=== PATIENT | male | born 1940 | race Asian ===

== ENCOUNTER → 2017-04-21 | Outpatient (CLI) | payer MEDICARE, OTHER ==
[2014-08-14 18:19] VITALS: BMI 27.1
[~2017-04-21] MED LIST: ALF10 PO; AMLO-96 PO; ASPI-1471 PO; ATOR20TA65 PO; ATR10 PO; AZIT500T47 PO; CHOL200051 PO; CHOL500025 PO; CIP500 PO; KET10 PO; LEV25 PO; LEV500P IV; LISI-362 PO; LISI20TA29 PO; LOR5 PO; METF-410 PO; METF500T4 PO; METO-253 PO; OMEG300C PO; TEST2.5G6; WARF2TAB73 PO
[2017-04-21 12:19] LABS: PLATELET COUNT, AUTOMATED 241 K/uL (150-450)
[2017-04-21 12:56] LABS: LDL CHOLESTEROL 63 mg/dl
== END ==
LOC: LAB 11:36
PROVIDERS: ATTEND Internal Medicine
DX: E11.9 Type 2 diabetes mellitus without complications (principal); I10 Essential (primary) hypertension; G47.33 Obstructive sleep apnea (adult) (pediatric); E78.2 Mixed hyperlipidemia; E03.9 Hypothyroidism, unspecified
CPT/HCPCS: 36415; 82040; 82247; 82310; 82374; 82435; 82465; 82565; 82947; 83036; 83718; 84075; 84132; 84155; 84295; 84443; 84450; 84460; 84478; 84520; 85025

== ENCOUNTER → 2017-10-08 | Outpatient (CLI) | payer MEDICARE, OTHER ==
[2014-08-14 18:19] VITALS: BMI 27.1
[~2017-10-08] MED LIST changes: +HYDR12.556 PO; -METF-410 PO; +METF-411 PO
== END ==
LOC: LAB 10:59
PROVIDERS: ATTEND Internal Medicine Cardiovascular Disease
DX: E78.00 Pure hypercholesterolemia, unspecified (principal); Z95.2 Presence of prosthetic heart valve
CPT/HCPCS: 36415; 82310; 82374; 82435; 82465; 82565; 82947; 83718; 84132; 84295; 84478; 84520

== ENCOUNTER → 2018-04-16 | Outpatient (CLI) | payer MEDICARE, OTHER ==
[2014-08-14 18:19] VITALS: BMI 27.1
[~2018-04-16] MED LIST changes: +AMLO-125 PO; -AMLO-96 PO; -METF-411 PO; +METF-450 PO
[2018-04-16 13:31] LABS: PLATELET COUNT, AUTOMATED 248 K/uL (150-450)
== END ==
LOC: LAB 12:47
PROVIDERS: ATTEND Internal Medicine
DX: Z00.00 Encounter for general adult medical examination without abnormal findings (principal); E11.9 Type 2 diabetes mellitus without complications; I10 Essential (primary) hypertension; E03.9 Hypothyroidism, unspecified; I50.9 Heart failure, unspecified; Z12.5 Encounter for screening for malignant neoplasm of prostate
CPT/HCPCS: 36415; 81001; 83036; 84443; 85025; G0103; 82040; 82247; 82310; 82374; 82435; 82465; 82565; 82947; 83718; 84075; 84132; 84153; 84155; 84295; 84450; 84460; 84478; 84520

== ENCOUNTER → 2018-05-26 | Outpatient (CLI) | payer MEDICARE, OTHER ==
[2014-08-14 18:19] VITALS: BMI 27.1
--- NOTE | 2018-05-26 15:57 | EKG ---
FACILITY: [facility] PATIENT NAME: ANABEL ZAMUDIO : [id number] MR: [id number] V: [id number] EXAM DATE: ORDERING PHYSICIAN: ENMANUEL KC TECHNOLOGIST: Test Reason : Blood Pressure : / mmHG Vent. Rate : 073 BPM Atrial Rate : 073 BPM P-R Int : 154 ms QRS Dur : 100 ms QT Int : 444 ms P-R-T Axes : 002 012 093 degrees QTc Int : 489 ms Normal sinus rhythm Nonspecific ST and T wave abnormality Prolonged QT Abnormal ECG When compared with ECG of 06-AUG-2015 15:37, Non-specific change in ST segment in Inferior leads Non-specific change in ST segment in Anterolateral leads T wave inversion no longer evident in Inferior leads T wave inversion now evident in Lateral leads QT has lengthened Referred By: Confirmed By:
== END ==
LOC: RESP 13:23
PROVIDERS: ATTEND Surgery
DX: R94.31 Abnormal electrocardiogram [ECG] [EKG] (principal)
CPT/HCPCS: 93005

== ENCOUNTER 2018-06-23 01:10 | Day surgery (SDC) | payer MEDICARE, OTHER ==
[2014-08-14 18:19] VITALS: Ht 172.7 cm; Wt 74.4 kg
[~2018-06-23] VITALS: Ht 172.7 cm; Wt 74.4 kg
[2018-06-23 06:13] VITALS: BP 130/87
[2018-06-23] MEDS ORDERED: LIDOCAINE/SOD BICARB 8.4% SYR ID ONE (06:30)
[2018-06-23] MEDS ORDERED: NORMOSOL R SOLN(*) 1000 ML BAG 1,000 ML IV PRN (06:30)
[2018-06-23] MEDS ORDERED: PROPOFOL EMUL(*) 10MG/ML 20 ML 40 ML ONE ×2 (07:10→07:17)
[2018-06-23] MEDS ORDERED: LIDOCAINE MPF 1% 5 ML VIAL ONE ×2 (07:10→07:17)
[2018-06-23] MEDS ORDERED: PROPOFOL EMUL(*) 10MG/ML 20 ML 20 ML ONE ×2 (08:09→08:39)
[2018-06-23 08:44] VITALS: BP 86/56
--- NOTE | 2018-06-23 08:58 | Short(Outpt) Discharge Summary ---
Discharge Summary Reason for Hosp/Final Diag: (1) History of colon polyps Status: Chronic Hospital Course & Plan: Colonoscopy with polypectomy x15 completed without problems. Will recommend colonoscopy in 1 year. Departure Discharge to: Home, Self Care Discharge Instructions Home Meds Active Scripts Hydrochlorothiazide (HYDROCHLOROTHIAZIDE) 12.5 Mg Capsule, 1 TAB PO QDAY, #90 CAPSULE 4 Refills Prov:PENNIE LONGORIA MD 04/27/18 Lisinopril (LISINOPRIL) 20 Mg Tablet, 20 MG PO BID, #180 TAB 4 Refills Prov:PENNIE LONGORIA MD 04/27/18 Metformin Hcl (METFORMIN HCL ER) 500 Mg Tab.er.24, 3 TAB PO QDAY, #270 TAB 4 Refills Prov:PENNIE LONGORIA MD 04/27/18 Atorvastatin Calcium (ATORVASTATIN CALCIUM) 20 Mg Tablet, 1 TAB PO QDAY, #90 TAB 4 Refills TAKE ONE TABLET BY MOUTH ONCE A DAY AT BED TIME Prov:PENNIE LONGORIA MD 04/27/18 Metoprolol Tartrate (METOPROLOL TARTRATE) 50 Mg Tab, 1 TAB PO BID, #180 TAB 4 R efills Prov:PENNIE LONGORIA MD 04/27/18 Reported Medications Cholecalciferol (Vitamin D3) (D-2000) 2,000 Unit Capsule, 2000 UNIT PO QDAY, CAPSULE 11/11/16 Aspirin (ASPIR 81) 81 Mg Tablet., 2 TAB PO QDAY, TAB 10/20/13 Diet: Regular Activity: As Tolerated Special Instructions: Your colonoscopy was completed without problems and your prep was excellent (Good Job!!). I removed 15 polyps from your colon and they were sent to pathology. One of them, in particular, was a large polyp that I had to remove in pieces and so I would like to look again in 1 year for more polyps and to make sure the large polyp isn't growing back. My office will call you in the next week or two to let you know what the polyps are but we'll recommend that your next colonoscopy be in 1 year. ENMANUEL KC MD June 23, 2018 08:58
[2018-06-23 09:01] VITALS: BP 107/78
[2018-06-23 09:30] VITALS: BP 124/81
[2018-06-23 09:40] VITALS: BP 114/84
[2018-06-23 09:42] VITALS: BP 125/85
== END 2018-06-23 10:05 | disposition home or self-care (01) ==
LOC: OR 01:10
PROVIDERS: ATTEND Surgery
DX: Z12.11 Encounter for screening for malignant neoplasm of colon (principal); D12.2 Benign neoplasm of ascending colon; D12.4 Benign neoplasm of descending colon; E11.9 Type 2 diabetes mellitus without complications
CPT/HCPCS: 00811; 36416; 45385; 82948; J2001; J2704; 88305

== ENCOUNTER → 2018-07-02 | Outpatient (CLI) | payer MEDICARE, OTHER ==
[2014-08-14 18:19] VITALS: BMI 27.1
[2018-07-02 12:31] LABS: PLATELET COUNT, AUTOMATED 282 K/uL (150-450)
--- NOTE | 2018-07-02 13:27 | RADIOLOGY IMAGING REPORT ---
FACILITY: [facility] [place]IENT NAME: Dalila Alva : 1940 MR: [id number] V: [id number] EXAM DATE: ORDERING PHYSICIAN: PENNIE LONGORIA TECHNOLOGIST: Location: [facility] [place] Patient: Dalila Alva : 1940 Visit/Account:[id number] Date of Sevice: 07/02/2018 Chest 2 views: HISTORY: Hypoxemia, dyspnea COMPARISON: 08/06/2015, chest CT 08/31/2015 FINDINGS: Frontal and lateral chest: Heart size is upper limits of normal. Aorta is ectatic and ther e are atherosclerotic changes. There is prominence of the interstitial markings throughout the lungs , very subtle areas of scattered groundglass opacity. There is scarring and pleural thickening in th e right upper hemithorax laterally. There is no focal consolidation or pleural effusion. No pneumot horax. Pulmonary vasculature is normal. Changes of median sternotomy and valve replacement noted IMPRESSION: Prominent interstitial markings with scattered areas of groundglass opacity, these findin gs are more pronounced than on the prior chest x-ray and chest CT. Findings may be indicative of an acute infectious or inflammatory process superimposed on chronic interstitial lung disease. Pattern is not what would be expected for congestive heart failure. Report Dictated By: Ya Jacobs MD at 07/02/2018 1:04 PM Report E-Signed By: Ya Jacobs MD at 07/02/2018 1:22 PM WSN:[email or web address]
== END ==
LOC: LAB 11:14
PROVIDERS: ATTEND Internal Medicine
DX: R06.09 Other forms of dyspnea (principal); R09.02 Hypoxemia; Z95.3 Presence of xenogenic heart valve; I10 Essential (primary) hypertension; E78.2 Mixed hyperlipidemia
CPT/HCPCS: 36415; 71046; 82040; 82247; 82310; 82374; 82435; 82565; 82947; 83036; 83880; 84075; 84132; 84155; 84295; 84443; 84450; 84460; 84520; 85025; 93306

== ENCOUNTER → 2018-07-07 | Outpatient (CLI) | payer MEDICARE, OTHER ==
[2014-08-14 18:19] VITALS: BMI 27.1
--- NOTE | 2018-07-07 17:22 | RADIOLOGY IMAGING REPORT ---
FACILITY: [facility] [place] PATIENT NAME: Dalila Alva : 1940 MR: [id number] V: [id number] EXAM DATE: [id number] ORDERING PHYSICIAN: PENNIE LONGORIA TECHNOLOGIST: Location: [facility] - [place] Patient: Dalila Alva : 1940 Visit/Account:[id number] Date of Sevice: 07/07/2018 EXAMINATION: CT Chest Without Contrast 07/07/2018 7:57 AM HISTORY: Interstitial lung disease TECHNIQUE: Spiral scan was obtained through the chest without contrast. One of the following dose optimization techniques was utilized in the performance of this exam: Autom ated exposure control; adjustment of the mA and/or kV according to the patient's size; or use of an i terative reconstruction technique. Specific details can be referenced in the facility's radiology C T exam operational policy. COMPARISON STUDIES: CTA chest 08/31/2015. FINDINGS: Lungs / pleura: There are bullous or emphysematous lucencies in the lungs most notably in the apices. Subpleural reticular fibrosis with mild honeycombing in the lungs with upper and lower lobe involvem ent with a basilar predominance. Overall there has been minimal progression from previous. No superim posed acute groundglass opacity and exacerbation. No focal parenchymal mass. Pleural spaces are clear . Mediastinum / kyaw: negative Heart / pericardium: Indwelling TAVR. Vessels: Sclerosis includes coronary disease. Musculoskeletal / Body wall: No acute finding. Sternotomy is intact. Degenerative changes in the spin e. Lymph node assessment: 1.7 cm right paratracheal lymph node and additional smaller lymph nodes are es sentially stable. Lower neck: negative Upper abdomen: CBD in the pancreatic head is prominent at 1.1 cm. Distal most CBD and ampulla are not visualized by this chest study. Incidental small accessory splenule. Exophytic low density posterior cortical cyst on the right kidney. IMPRESSION: 1. ILD with peripheral fibrosis and mild honeycombing without substantial progression comparing with 08/31/2015. This is a nonspecific pattern as can be seen with UIP with etiologies such as chronic hype rsensitivity pneumonitis. 2. Stable mild mediastinal adenopathy, likely reactive to the pulmonary process. 3. Prominent CBD, little changed from previous. Report Dictated By: Rashi Magallanes MD at 07/07/2018 5:11 PM Report E-Signed By: Rashi Magallanes MD at 07/07/2018 5:18 PM WSN:[id number]
== END ==
LOC: CT 00:37
PROVIDERS: ATTEND Internal Medicine
DX: J84.9 Interstitial pulmonary disease, unspecified (principal)
CPT/HCPCS: 71250

== ENCOUNTER → 2018-07-12 | Outpatient (CLI) | payer MEDICARE, OTHER ==
[2014-08-14 18:19] VITALS: BMI 27.1
--- NOTE | 2018-07-12 16:36 | RADIOLOGY IMAGING REPORT ---
FACILITY: [facility] - [place] PATIENT NAME: Dalila Alva : 1940 MR: [id number] V: [id number] EXAM DATE: ORDERING PHYSICIAN: PENNIE LONGORIA TECHNOLOGIST: Location: [facility] [place] Patient: Dalila Alva : 1940 Visit/Account:[id number] Date of Sevice: 07/12/2018 KIDNEYS EXAMINATION: Renal ultrasound. History: Abnormal renal function COMPARISON STUDIES: CT on pelvis December 06, 2007 FINDINGS: Kidneys: Right kidney- 9.8 x 5.4 x 5.8. Centimeters There is a 2.4 cm cyst in the upper pole. The resistive index on the right is 0.56 Left kidney- 11.4 x 5.5 x 4.1 cm. Resistive index on the left is 0.56 Uniform and symmetric blood flow in each kidney by Doppler ultrasound. Hydronephrosis: none Bladder: Prevoid volume 159 mL. Post void residual 82 mL. Bilateral ureteral jets are present. Pro state gland measures 3.6 x 3.7 x 3.4 cm. There are prominent vessels in the left side of the pelvis Abdominal aorta and IVC: Aorta and IVC are patent by Doppler ultrasound. IMPRESSION: 2.4 cm cyst upper pole of the right kidney 82 mL post void bladder residual. Prominent vessels left-sided the pelvis Mildly prominent prostate Report Dictated By: Ade Montiel MD at 07/12/2018 4:27 PM Report E-Signed By: Ade Montiel MD at 07/12/2018 4:31 PM WSN:[email or web address]
== END ==
LOC: US 00:38
PROVIDERS: ATTEND Internal Medicine
DX: N28.1 Cyst of kidney, acquired (principal); R33.9 Retention of urine, unspecified; N40.1 Benign prostatic hyperplasia with lower urinary tract symptoms
CPT/HCPCS: 76705

== ENCOUNTER → 2018-07-15 | Outpatient (CLI) | payer MEDICARE, OTHER ==
[2014-08-14 18:19] VITALS: BMI 27.1
--- NOTE | 2018-07-15 15:57 | NUR ---
Unable to perform PFT Patient was unable to produce acceptable and reproducible plethsmography, spirometry, and DLCO. After multiple trials of each test patient was unable to follow or listen to directions. I was unable to get acceptable results. Inhaler was not given. During the test I contacted Dr. Bach's nurse, Sherly and informed her that the test results were unable to achieve.
== END ==
LOC: RESP 02:17
PROVIDERS: ATTEND Internal Medicine
DX: Z02.9 Encounter for administrative examinations, unspecified (principal)

== ENCOUNTER → 2018-07-27 | Outpatient (CLI) | payer MEDICARE, OTHER ==
[2014-08-14 18:19] VITALS: BMI 27.1
== END ==
LOC: RESP 01:27
PROVIDERS: ATTEND Internal Medicine
DX: Z02.9 Encounter for administrative examinations, unspecified (principal)